=== PATIENT | female | born 1965 | race Caucasian/White ===

== ENCOUNTER → 2017-08-14 | Outpatient (CLI) | payer OTHER ==
[~2017-08-14] MED LIST: BACTROBAN CREAM30 G1 TOP; BUPROPION; CIPROFLOXACIN500 M1 PO; CLEOCIN HCL150 MG PO; CLONAZEPAM PO; DOXYCYCLINE 10100 M1 PO; ESKALITH300 MG; ESTRADIOL 1 MG T1 M1 PO; KADIAN30 MG; LEXAPRO20 MG PO; MOBIC15 MG PO; NORCO 5-325 TA1 EACH PO; NORCO 7.5-3251 EACH PO; NORVASC5 MG PO; OSCIMIN0.125 MG PO; OXYCODONE HCL15 MG PO; PRISTIQ50 MG PO; SERTRALINE HCL50 MG PO; TIZANIDINE HCL4 M1 PO; TRAMADOL 50 MG50 MG PO; ZPAK PO
--- NOTE | ~2017-08-14 | EKG ---
[place] [address] [facility] [place] [address] ELECTROCARDIOGRAM REPORT Name: SOFI MICHAEL Room #: REG CLI [facility]#: [id number] Admission: 08/14/17 Attend Phys: Fredo Card MD Discharge: Date of : 63 Report #: [id number] THIS REPORT FOR: //name// [facility] Test Date: 2017-08-14 Test Time: 07:16:17 Pat Name: SOFI SHAW Department: Room: Gender: F Vocal Teacher: GREG : 1965 Requested By: Fredo Card Order Number: [id number] MD: Lan Clay Measurements Intervals [place] Rate: 77 P: 61 WA: 159 QRS: 57 QRSD: 92 T: 65 QT: 405 QTc: 459 Interpretive Statements Sinus rhythm Borderline T wave abnormalities No previous ECG available for comparison Electronically Signed On 08-14-2017 9:15:42 CDT by Lan Clay [email or web address] <ELECTRONICALLY SIGNED> By: Lan Clay MD, [facility] 08/14/17 0915 0716 5 Lan Clay MD, FACC /EPI
== END | disposition home or self-care (01) ==
LOC: LITH 06:54
DX: N20.0 Calculus of kidney (principal); I10 Essential (primary) hypertension; F32.9 Major depressive disorder, single episode, unspecified; F41.9 Anxiety disorder, unspecified; Z98.890 Other specified postprocedural states; Z79.899 Other long term (current) drug therapy; Z88.0 Allergy status to penicillin; Z88.2 Allergy status to sulfonamides; Z88.8 Allergy status to other drugs, medicaments and biological substances